=== PATIENT | female | born 1980 | race American Indian/Alaskan Native ===

== ENCOUNTER 2017-08-20 12:18 | Emergency (ER) | payer SELFPAY ==
[2017-08-20 17:36] VITALS: BP 110/50
== END 2017-08-20 20:45 | disposition left against medical advice (07) ==
LOC: ED 12:18
DX: R56.9 Unspecified convulsions (principal); Z53.21 Procedure and treatment not carried out due to patient leaving prior to being seen by health care provider

== ENCOUNTER 2018-10-18 12:00 | Emergency (ER) | payer OTHER ==
[2018-10-18] MEDS ORDERED: ATIVAN PO ONE (12:54)
--- NOTE | 2018-10-18 13:08 | Emergency Department Report ---
ED Seizure HPI - General Chief Complaint: Seizure Stated Complaint: POSS SEIZURE Time Seen by Provider: 10/18/18 12:31 Source: patient, EMS Mode of arrival: Stretcher Limitations: No Limitations - History of Present Illness Initial Comments: Ms. Bunch is a 38 yo female with hx of seizure, PTSD, bipolar disorder and schizoaffecive disorder who presents with unwtinessed seizure. She has had seizures for the past 7-8 years. She has seizures several times a week. She was told by her neurologist that her seizure type was unclear. She was evaluated today by [facility] Dr. Russell. 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, recently moved one year ago from [place]) Treatments Prior to Arrival: none - Related Data Previous Rx's Medication Instructions Recorded Last Taken Type Topiramate [Topamax] 100 mg PO DAILY #30 tablet 06/10/18 Unknown Rx carBAMazepine XR [TEGretol XR] 200 mg PO DAILY #30 tab 06/10/18 Unknown Rx Allergies Allergy/AdvReac Type Severity Reaction Status Date / Time codeine AdvReac Itching Verified 10/18/18 12:32 ED Review of Systems ROS: Stated complaint: POSS SEIZURE Other details as noted in HPI Comment: All other systems reviewed and negative Constitutional: denies: fever, malaise Cardiovascular: denies: chest pain ED Past Medical Hx - Past Medical History Previous Medical History?: Yes Hx Seizures: Yes Hx Psychiatric Treatment: Yes (schizoaffective, bipolar, PTSD) - Surgical History Past Surgical History?: No - Social History Smoking Status: Current Every Day Smoker Substance Use Type: Marijuana, Other (former alcohol use, has not drank alcohol in one year) - Medications Home Medications: Home Medications Medication Instructions Recorded Confirmed Last Taken Type Topiramate [Topamax] 100 mg PO DAILY #30 tablet 06/10/18 Unknown Rx carBAMazepine XR [TEGretol XR] 200 mg PO DAILY #30 tab 06/10/18 Unknown Rx ED Physical Exam - General Limitations: No Limitations General appearance: alert, in no apparent distress - Head Head exam: Present: atraumatic, normocephalic - Eye Eye exam: Present: normal appearance - ENT ENT exam: Present: mucous membranes moist - Neck Neck exam: Present: normal inspection, full ROM. Absent: tenderness, meningismus - Respiratory Respiratory exam: Present: normal lung sounds bilaterally. Absent: respiratory distress, wheezes, rales, rhonchi - Cardiovascular Cardiovascular Exam: Present: regular rate, normal rhythm, normal heart sounds. Absent: systolic murmur, diastolic murmur, rubs, gallop - GI/Abdominal GI/Abdominal exam: Present: soft, normal bowel sounds. Absent: distended, tenderness, guarding, rebound - Extremities Exam Extremities exam: Present: normal inspection - Back Exam Back exam: Present: normal inspection - Neurological Exam Neurological exam: Present: alert, oriented X3 - Psychiatric Psychiatric exam: Present: normal mood, flat affect - Skin Skin exam: Present: warm, dry, intact, normal color. Absent: rash ED Course Vital Signs 10/18/18 12:07 Temperature 98 F Pulse Rate 77 Respiratory 20 Rate Blood Pressure 106/57 O2 Sat by Pulse 100 Oximetry ED Medical Decision Making - Medical Decision Making Ms. Bunch has had recurrent seizures since 2009. Has not taken Keppra in one year. Hx of remote head trauma. But she explained that her seizures are "a different type of seizure". Patient stated that previous EEG provided equivocal results. She has been compliant with medication if she has access. Evaluated today at [facility]. CBC BMP WNL.; Given PO ativan. dc'd home Critical care attestation.: If time is entered above; I have spent that time in minutes in the direct care of this critically ill patient, excluding procedure time. ED Disposition Clinical Impression: Recurrent seizures, PTSD (post-traumatic stress disorder), Bipolar disorder, Schizoaffective disorder Disposition: DC-01 TO HOME OR SELFCARE Is pt being admited?: No Does the pt Need Aspirin: No Condition: Stable Instructions: Recurrent Seizures Adult (ED) Referrals: NNEKA DURAN MD [Primary Care Provider] - 3-5 Days
[2018-10-18 13:44] LABS: Basophils % (Auto) 0.5 % (0.0-1.8); Eosinophils # (Auto) 0.3 K/mm3 (0.0-0.4); Eosinophils % (Auto) 4.5 % (0.0-4.3); Hematocrit 32.4 % (30.3-42.9); Hemoglobin 9.9 gm/dl (10.1-14.3); Lymphocytes # (Auto) 1.7 K/mm3 (1.2-5.4); Lymphocytes % (Auto) 24.6 % (13.4-35.0); Mean Corpuscular HGB Conc 31 % (30-34); Mean Corpuscular Volume 67 fl (79-97); Monocytes # (Auto) 0.5 K/mm3 (0.0-0.8); Monocytes % (Auto) 6.8 % (0.0-7.3); Platelet Count 251 K/mm3 (140-440); Red Blood Count 4.86 M/mm3 (3.65-5.03); Red Cell Distribution Width 21.3 % (13.2-15.2)
[2018-10-18 13:51] LABS: BUN/Creatinine Ratio 17; Blood Urea Nitrogen 12 mg/dL (7-17); Calcium 8.2 mg/dL (8.4-10.2); Hemolysis Index 7
[2018-10-18 14:38] VITALS: BP 109/60
== END 2018-10-18 14:40 | disposition home or self-care (01) ==
LOC: ED 12:00
DX: G43.909 Migraine, unspecified, not intractable, without status migrainosus (principal); F43.10 Post-traumatic stress disorder, unspecified; F31.9 Bipolar disorder, unspecified; F25.9 Schizoaffective disorder, unspecified; F17.200 Nicotine dependence, unspecified, uncomplicated; F12.10 Cannabis abuse, uncomplicated
CPT/HCPCS: 36415; 80048; 85025